=== PATIENT | female | born 1955 | race African-American/Black ===

== ENCOUNTER 2018-11-18 18:46 | Emergency (ER) | payer MEDICAID ==
[~2018-11-18] VITALS: Ht 167.6 cm; Wt 65.0 kg
[2018-11-18 18:52] VITALS: BP 110/57
== END 2018-11-18 20:56 | disposition left against medical advice (07) ==
LOC: ER 19:13
DX: Z53.21 Procedure and treatment not carried out due to patient leaving prior to being seen by health care provider (principal)

== ENCOUNTER 2021-04-08 12:51 | Emergency (ER) | payer BC, MEDICAID ==
[~2021-04-08] VITALS: Ht 165.1 cm; Wt 91.0 kg
[2021-04-08 12:57] VITALS: BP 169/69
[2021-04-08] MEDS ORDERED: ACETAMINOPHEN 325MG TABLET PO ONE (13:15)
[2021-04-08] MEDS ORDERED: LIDOCAINE HCL/EPINEPHRINE 1%-EPI 1:100,000 20 ML VIAL INFIL ONE (13:15)
[2021-04-08] MEDS ORDERED: IBUPROFEN 400MG TABLET PO ONE (13:15)
== END 2021-04-08 18:17 | disposition home or self-care (01) ==
LOC: ER 12:51
DX: L02.411 Cutaneous abscess of right axilla (principal)
CPT/HCPCS: 10060; 99283; J3490; Z7610

== ENCOUNTER 2023-10-17 12:48 | Emergency (ER) | payer BC, MEDICAID ==
[~2023-10-17] VITALS: Ht 157.5 cm; Wt 82.0 kg
[2023-10-17 12:59] VITALS: BP 140/58; PULSE 85; RESP 20; O2SAT 100
== END 2023-10-17 15:10 | disposition left against medical advice (07) ==
LOC: ER 12:48
DX: Z00.00 Encounter for general adult medical examination without abnormal findings (principal); Z53.21 Procedure and treatment not carried out due to patient leaving prior to being seen by health care provider